=== PATIENT | male | born 1940 ===

== ENCOUNTER 2018-04-21 10:20 | Emergency (ER) | payer MEDICARE, MEDICAID ==
[2018-04-21 10:46] VITALS: BP 124/56
--- NOTE | 2018-04-21 11:36 | UC ---
Dental HPI - HPI Summary HPI Summary: Patient has been having pain to his right upper most posterior tooth for the past 2 days and then last evening he got swelling in the cheek above the tooth. He denies any difficulty with opening his mouth he has no difficulty with swallow or fever. His son offers that the patient has very bad teeth but refuses to go to with dentist. 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 Onset/Duration: Gradual Onset Pain Intensity: 5 Aggravating Factor(s): Chewing - Allergies/Home Medications Allergies/Adverse Reactions: Allergies Allergy/AdvReac Type Severity Reaction Status Date / Time No Known Allergies Allergy Verified 04/21/18 10:38 Home Medications: Home Medications Bisoprolol TAB* [Zebeta TAB*] 5 mg PO DAILY 04/21/18 [History Confirmed 04/21/18 ] Ibuprofen TAB* [Advil TAB*] 400 mg PO Q6H PRN 04/21/18 [History Confirmed ] Lisinopril TAB* [Prinivil TAB*] 5 mg PO DAILY 04/21/18 [History Confirmed ] Rivaroxaban TAB(*) [Xarelto 10 mg (*)] 20 mg PO DAILY 04/21/18 [History Confirmed 04/21/18] amLODIPine TAB* [Norvasc 5 mg TAB*] 5 mg PO DAILY 04/21/18 [History Confirmed ] PMH/Surg Hx/FS Hx/Imm Hx Cardiovascular History: Cardiac Disease, Hypertension - Surgical History Surgical History: Yes Surgery Procedure, Year, and Place: Cardiac Valve Replacements, Cholecystectomy - Family History Known Family History: Positive: Unknown - Social History Occupation: Retired Lives: With Family Alcohol Use: None Substance Use Type: None Smoking Status (MU): Never Smoked Tobacco - Immunization History Vaccination Up to Date: Yes Review of Systems Constitutional: Negative Skin: Negative Eyes: Negative ENT: Dental Pain Respiratory: Negative Cardiovascular: Negative Gastrointestinal: Negative Genitourinary: Negative Motor: Negative Neurovascular: Negative Musculoskeletal: Negative Neurological: Negative Psychological: Negative Is Patient Immunocompromised?: No All Other Systems Reviewed And Are Negative: Yes Physical Exam Triage Information Reviewed: Yes Appearance: Well-Appearing Vital Signs: Initial Vital Signs Temp 98 F 04/21/18 10:37 Pulse 74 04/21/18 10:37 Resp 16 04/21/18 10:37 BP 124/56 04/21/18 10:37 Pulse Ox 99 04/21/18 10:37 Vital Signs Reviewed: Yes Eyes: Positive: Conjunctiva Clear ENT: Positive: Pharynx normal, TMs normal. Negative: Nasal congestion, Nasal drainage Dental: Positive: Percussion Tenderness @ - R upper cusp, Gross Decay/Caries @ - Widespread to the few remaining teeth., Abscess @ - Right upper gum where there is swelling to the remaining decaying teeth. The area is swollen but not fluctuant. Neck: Positive: Supple, Nontender, No Lymphadenopathy Respiratory: Positive: Lungs clear, Normal breath sounds Cardiovascular: Positive: RRR, No Murmur Abdomen Description: Positive: Nontender, No Organomegaly, Soft Bowel Sounds: Positive: Present Musculoskeletal: Positive: ROM Intact Neurological: Positive: Alert Psychological: Positive: Normal Response To Family, Age Appropriate Behavior Skin Exam: Normal Dental Complaint Course/Dx - Course Course Of Treatment: Exam is consistent with multiple dental caries as well as an abscess to the right upper gum which is not fluctuant thus no attempt to drain. I did suggest follow-up with an oral surgeon because the patient does not have his own dentist. Patient's son states that he is going to set him up with a dentist on Monday. They were advised that if the swelling in his face becomes worse or if he has any difficulty with anything or fever that they should go to the ER. - Differential Dx/Diagnosis Provider Diagnoses: R upper gum infection. Dental caries. Pain R upper cusp Discharge - Sign-Out/Discharge Documenting (check all that apply): Patient Departure All imaging exams completed and their final reports reviewed: No Studies - Discharge Plan Condition: Stable Disposition: HOME Prescriptions: Amoxicillin PO (*) [Amoxicillin 875 MG (*)] 875 mg PO BID #20 tab Patient Education Materials: Dental Abscess (ED), Toothache (ED) Referrals: Wiley Fowler MD [Primary Care Provider] - - Billing Disposition and Condition Condition: STABLE Disposition: Home
== END 2018-04-21 11:40 | disposition home or self-care (01) ==
LOC: UCCORT 10:20
DX: K05.10 Chronic gingivitis, plaque induced (principal); K02.9 Dental caries, unspecified; K08.89 Other specified disorders of teeth and supporting structures; I10 Essential (primary) hypertension; Z79.01 Long term (current) use of anticoagulants; Z95.2 Presence of prosthetic heart valve
CPT/HCPCS: 99212; G0463

== ENCOUNTER 2018-07-28 17:44 | Emergency (ER) | payer MEDICARE, MEDICAID ==
[2018-07-28 18:11] VITALS: BP 128/70
--- NOTE | 2018-07-28 18:41 | UC ---
Complaint Male HPI - HPI Summary HPI Summary: C/O dysuria and frequency since yesterday. Blood in the urine today. - History of Current Complaint Stated Complaint: POSSIBLE UTI Hx Obtained From: Patient, Family/Special Education Aide Onset/Duration: Sudden Onset, Lasting Days - 1, Worse Since - today Timing: Constant Severity Initially: Mild Severity Currently: Moderate Pain Intensity: 0 Location: Suprapubic Character: Constant Pressure Aggravating Factor(s): Voiding Alleviating Factor(s): Nothing Associated Signs And Symptoms: Positive: Hematuria, Dysuria. Negative: Diaphoresis, Back Pain, Fever, Penile Swelling, Penile Discharge - Allergies/Home Medications Allergies/Adverse Reactions: Allergies Allergy/AdvReac Type Severity Reaction Status Date / Time No Known Allergies Allergy Verified 07/28/18 18:04 PMH/Surg Hx/FS Hx/Imm Hx Cardiovascular History: Hypertension Other Cardiovascular History: Valve replacement - Surgical History Surgical History: Yes Surgery Procedure, Year, and Place: Cardiac Valve Replacements, Cholecystectomy - Family History Known Family History: Negative: Diabetes - Social History Occupation: Retired Lives: With Family Alcohol Use: None Substance Use Type: None Smoking Status (MU): Never Smoked Tobacco - Immunization History Vaccination Up to Date: Yes Review of Systems All Other Systems Reviewed And Are Negative: Yes Genitourinary: Positive: Dysuria, Hematuria, Frequency, Urgency Is Patient Immunocompromised?: No Physical Exam Triage Information Reviewed: Yes Appearance: Well-Appearing, No Pain Distress, Well-Nourished Vital Signs: Initial Vital Signs Temp 98.8 F 07/28/18 18:05 Pulse 88 07/28/18 18:05 Resp 22 07/28/18 18:05 BP 128/70 07/28/18 18:05 Pulse Ox 98 07/28/18 18:05 Vital Signs Reviewed: Yes Eyes: Positive: Conjunctiva Clear Neck exam: Normal Respiratory Exam: Normal Cardiovascular: Positive: RRR, No Murmur Abdomen Description: Positive: Nontender, No Organomegaly, Soft. Negative: CVA Tenderness (R), CVA Tenderness (L) Musculoskeletal Exam: Normal Neurological Exam: Normal Psychological Exam: Normal Skin Exam: Normal Complaint Male Course/Dx - Differential Dx/Diagnosis Differential Diagnosis/HQI/PQRI: Prostatitis, Pyelonephritis, Urinary Tract Infection Provider Diagnosis: Hemorrhagic cystitis Discharge - Sign-Out/Discharge Documenting (check all that apply): Patient Departure All imaging exams completed and their final reports reviewed: No Studies - Discharge Plan Condition: Stable Disposition: HOME Prescriptions: Sulfamethox/Trimethoprim DS* [Bactrim DS 800/160 TAB*] 1 tab PO BID #28 tab Patient Education Materials: Urinary Tract Infection in Men (ED), Sulfamethoxazole/Trimethoprim (By mouth) Referrals: Wiley Fowler MD [Primary Care Provider] - Additional Instructions: Make sure to follow up with his Urologist yearly. - Billing Disposition and Condition Condition: STABLE Disposition: Home
[2018-07-28] MEDS ORDERED: Sulfamethox/Trimethoprim DS 800/160* TAB PO ONE (18:49)
== END 2018-07-28 18:59 | disposition home or self-care (01) ==
LOC: UCCORT 17:44
DX: N30.91 Cystitis, unspecified with hematuria (principal); I10 Essential (primary) hypertension
CPT/HCPCS: 81003; 87077; 87086; 87186; 99212; A9270-GY; G0463